=== PATIENT | male | born 1995 | race African-American/Black ===

== ENCOUNTER 2019-12-17 16:33 | Emergency (ER) | payer SELFPAY ==
[~2019-12-17] VITALS: Ht 177.8 cm; Wt 82.0 kg
[2019-12-17] MEDS ORDERED: SODIUM CHLORIDE 0.9% 1,000 ML IV ONE (16:57)
[2019-12-17] MEDS ORDERED: ONDANSETRON HCL 4MG/2ML INJ IV STA (16:57)
[2019-12-17] MEDS ORDERED: HALOPERIDOL LACTATE 5MG/ML VIAL IM ONE (17:30)
[2019-12-17] MEDS ORDERED: DIPHENHYDRAMINE 50MG/ML VIAL IM ONE (18:00)
[2019-12-17 18:05] LABS: BASOPHILS % 1.5 % (0.0-2.0); EOSINOPHILS % 0.5 % (0.0-5.0); HEMATOCRIT. 46.8 % (42.0-52.0); HEMOGLOBIN. 16.2 g/dL (14.0-18.0); LYMPHOCYTES % 37.7 % (20.0-50.0); MEAN CORPUSCULAR HEMOGLOBIN 31.2 pg (28.0-32.0); MEAN CORPUSCULAR VOLUME 90.3 fL (80.0-94.0); MEAN PLATELET VOLUME 7.5 fl (7.4-10.4); MONOCYTES % 4.8 % (2.0-8.0); NEUTROPHILS % 55.5 % (40.0-76.0); PLATELET 263 x1000/uL (130-400); RED BLOOD CELL COUNT 5.18 mill/uL (4.7-6.1); RED CELL DISTRIBUTION WIDTH 14.4 % (11.6-14.6)
[2019-12-17 18:10] LABS: CHLORIDE 103 mEq/L (98-107)
[2019-12-17 18:28] LABS: ETHANOL BLOOD 374 mg/dL
[2019-12-17 23:35] VITALS: BP 120/70
== END 2019-12-17 23:37 | disposition home or self-care (01) ==
LOC: ER 16:39
DX: F10.129 Alcohol abuse with intoxication, unspecified (principal); Y90.8 Blood alcohol level of 240 mg/100 ml or more; F91.8 Other conduct disorders; R45.1 Restlessness and agitation; E87.6 Hypokalemia; R73.9 Hyperglycemia, unspecified; Z78.1 Physical restraint status
CPT/HCPCS: 36415; 70450; 73110; 80053; 80320; 84484; 85025; 93005; 96372; 99285; J1200; J1630; J2405; J7030; G0480

== ENCOUNTER 2022-01-23 12:45 | Emergency (ER) | payer SELFPAY ==
[~2022-01-23] VITALS: Ht 177.8 cm; Wt 100.0 kg
[2022-01-23 12:56] VITALS: BP 141/95
[2022-01-23] MEDS ORDERED: BACITRACIN ZINC OINT UDPKT TOP ONE (13:15)
[2022-01-23] MEDS ORDERED: HYDROCODONE/ACETAMINOPHEN 5/325MG TABLET PO ONE (13:15)
[2022-01-23] MEDS ORDERED: LIDOCAINE HCL/PF 1% 10 MG/ML 5ML VIAL INFIL ONE (13:15)
[2022-01-23] MEDS ORDERED: TETANUS, DIPHTHERIA, PERTUSSIS VAC/PF 0.5ML (>10YR OLD) IM ONE (13:15)
[2022-01-23] MEDS ORDERED: LIDOCAINE HCL 1% 10 MG/ML 10ML VIAL IJ NR (13:30)
[2022-01-23] MEDS ORDERED: BO1 TP (14:24)
[2022-01-23] MEDS ORDERED: IBUP-2030 MT (14:24)
== END 2022-01-23 15:24 | disposition home or self-care (01) ==
LOC: ER 12:45
DX: S02.2XXA Fracture of nasal bones, initial encounter for closed fracture (principal); S61.411A Laceration without foreign body of right hand, initial encounter; R51.9 Headache, unspecified; V86.56XA Driver of dirt bike or motor/cross bike injured in nontraffic accident, initial encounter; Y93.I9 Activity, other involving external motion; Y92.488 Other paved roadways as the place of occurrence of the external cause; R03.0 Elevated blood-pressure reading, without diagnosis of hypertension
CPT/HCPCS: 12002; 70450; 70486; 73110; 73130; 90471; 90715; 99284; J3490; Z7610

== ENCOUNTER 2022-01-30 10:12 | Emergency (ER) | payer OTHER ==
[~2022-01-30] VITALS: Ht 177.8 cm; Wt 102.0 kg
[~2022-01-30 10:12] MED LIST: BO1 TP; IBUP-2030 MT
[2022-01-30 11:43] VITALS: BP 128/85
== END 2022-01-30 11:48 | disposition home or self-care (01) ==
LOC: ER 10:44
DX: Z48.02 Encounter for removal of sutures (principal)
CPT/HCPCS: 99281

== ENCOUNTER 2022-02-04 11:52 | Emergency (ER) | payer OTHER ==
[~2022-02-04] VITALS: Ht 180.3 cm; Wt 102.0 kg
[2022-02-04 12:21] VITALS: BP 113/79
== END 2022-02-04 13:21 | disposition home or self-care (01) ==
LOC: ER 11:52
DX: Z48.02 Encounter for removal of sutures (principal)
CPT/HCPCS: 99281

== ENCOUNTER 2024-11-01 11:12 | Emergency (ER) | payer OTHER ==
[~2024-11-01] VITALS: Ht 180.3 cm; Wt 98.0 kg
[2024-11-01 11:16] VITALS: BP 170/113; PULSE 116; RESP 18; TEMP 36.4; O2SAT 98
[2024-11-01 12:56] LABS: BASOPHILS % 1.7 % (0.0-2.0); EOSINOPHILS % 0.9 % (0.0-5.0); HEMATOCRIT. 45.5 % (42.0-52.0); LYMPHOCYTES % 35.2 % (20.0-50.0); MEAN CORPUSCULAR HEMOGLOBIN 31.2 pg (28.0-32.0); MEAN CORPUSCULAR VOLUME 94.3 fL (80.0-94.0); MEAN PLATELET VOLUME 7.1 fl (7.4-10.4); MONOCYTES % 3.5 % (2.0-8.0); NEUTROPHILS % 58.7 % (40.0-76.0); PLATELET 378 x1000/uL (130-400); RED BLOOD CELL COUNT 4.82 mill/uL (4.7-6.1); RED CELL DISTRIBUTION WIDTH 15.9 % (11.6-14.6)
[2024-11-01 13:09] LABS: CHLORIDE 108 mEq/L (98-107); POTASSIUM 3.7 mEq/L (3.5-5.1); SODIUM 148 mEq/L (136-145)
[2024-11-01 13:10] LABS: CALCIUM 8.5 mg/dL (8.7-10.4); CARBON DIOXIDE 29 mEq/L (21-32)
[2024-11-01 13:14] LABS: TROPONIN I HIGH SENSITIVITY 10 ng/L (3.0-53)
[2024-11-01 13:15] LABS: CREATININE 0.7 mg/dL (0.6-1.3); GLUCOSE 94 mg/dL (70-105)
[2024-11-01 13:18] LABS: UREA NITROGEN BLOOD < 5 mg/dL (9-23)
[2024-11-01 13:29] LABS: ETHANOL BLOOD 460 mg/dL (<10)
== END 2024-11-01 20:41 | disposition left against medical advice (07) ==
LOC: ER 11:12 → EDBEDREQ 11:36 → EDBEDREQTM 13:54 → CANBEDREQ 20:25 → ER 20:41
DX: T51.0X1A Toxic effect of ethanol, accidental (unintentional), initial encounter (principal); G93.40 Encephalopathy, unspecified; Z79.899 Other long term (current) drug therapy; Z79.1 Long term (current) use of non-steroidal anti-inflammatories (NSAID)
CPT/HCPCS: 36415; 80048; 80320; 84484; 85025; 99284; G0480